=== PATIENT | male | born 1990 | race Caucasian/White ===

== ENCOUNTER 2016-10-01 11:44 | Emergency (ER) | payer SELFPAY ==
[2016-10-01 11:51] VITALS: BP 117/71; PULSE 67; TEMP 97.6; BMI 25.6
--- NOTE | 2016-10-01 13:09 | PDOC ---
History of Present Illness - General Chief Complaint: Pain Stated Complaint: RIGHT KNEE PAIN Time Seen by Provider: 10/01/16 12:17 History Source: Patient Exam Limitations: No Limitations - History of Present Illness Initial Comments: 10/01/16 13:05 25 yr male with 8 years of pain to the right knee. Pt states he injured it in highschool and has had intermittent pain since then. Pt denies any recent trauma or injury. Pt has no medical history or surgical history no allergies. Severity: Yes: mild Lower Ext. Injury Location - Specific Injury Location Knees: right pain Past History - Past Medical History Allergies/Adverse Reactions: Allergies Allergy/AdvReac Type Severity Reaction Status Date / Time No Known Allergies Allergy Verified 10/01/16 11:48 Home Medications: Ambulatory Orders No Home Medications 0 dose .ROUTE UTDICT 12/18/12 Other medical history: brain sx 'METAL PLATE" - Psycho/Social/Smoking Cessation Hx Anxiety: No Suicidal Ideation: No Smoking Status: Yes Smoking History: Current every day smoker Have you smoked in the past 12 months: Yes Number of Cigarettes Smoked Daily: 10 Information on smoking cessation initiated: No 'Breaking Loose' booklet given: 08/09/15 Hx Alcohol Use: No Drug/Substance Use Hx: No Substance Use Type: None Review of Systems - Review of Systems Able to Perform ROS?: Yes Is the patient limited Slovenian proficient: No Constitutional: No: Symptoms Reported HEENTM: No: Symptoms Reported Respiratory: No: Symptoms reported Cardiac (ROS): No: Symptoms Reported ABD/GI: No: Symptoms Reported : No: Symptoms Reported Musculoskeletal: Yes: See HPI *Physical Exam - Vital Signs Last Vital Signs Temp Pulse Resp BP Pulse Ox 97.6 F 67 18 117/71 100 10/01/16 11:48 10/01/16 11:48 10/01/16 11:48 10/01/16 11:48 10/01/16 11:48 - Physical Exam General Appearance: Yes: Nourished, Appropriately Dressed HEENT: positive: EOMI, ADRIAN Neck: positive: Supple Respiratory/Chest: positive: Lungs Clear, Normal Breath Sounds Cardiovascular: positive: Regular Rhythm, Regular Rate Musculoskeletal: positive: Normal Inspection. negative: Other Extremity: positive: Normal Capillary Refill, Normal Inspection, Normal Range of Motion. negative: Tender, Swelling, Erythema, Inflammation Integumentary: positive: Normal Color, Dry, Warm Neurologic: positive: Fully Oriented, Alert, Normal Mood/Affect, Normal Response , Motor Strength 5/5 ED Treatment Course - RADIOLOGY Radiology Studies Ordered: Category Date Time Status KNEE 3 POS-RIGHT [RAD] Stat Radiology 10/01/16 12:31 Completed Medical Decision Making - Medical Decision Making 10/01/16 13:06 cc: knee pain 8 years will xray to r/o fracture refer to ortho for follow up nsaids for pain *DC/Admit/Observation/Transfer Diagnosis at time of Disposition: Knee pain Qualifiers: Chronicity: acute Laterality: right Qualified Code(s): M25.561 - Pain in right knee - Discharge Dispostion Disposition: HOME Condition at time of disposition: Good - Referrals Referrals: Mike Granados MD [Staff Physician] - - Patient Instructions Additional Instructions: follow with for follow up , he has office hours in the hospital just call to make appointment take motrin , (advil, naprosyn, aleve) as directed for pain over the counter
== END 2016-10-01 13:27 | disposition home or self-care (01) ==
LOC: JERFT 11:44
DX: M25.561 Pain in right knee (principal); F17.210 Nicotine dependence, cigarettes, uncomplicated
CPT/HCPCS: 73562-TC-RT; 99281-25

== ENCOUNTER 2017-09-20 16:03 | Emergency (ER) | payer SELFPAY ==
--- NOTE | 2017-09-20 16:13 | PDOC ---
Rapid Medical Evaluation Time Seen by Provider: 09/20/17 16:11 Medical Evaluation: Allergies Allergy/AdvReac Type Severity Reaction Status Date / Time No Known Allergies Allergy Verified 10/01/16 11:48 09/20/17 16:11 I have performed a brief in-person evaluation of this patient. The patient present with a chief complaint of: finger pain x 3 days. States pull hang nail over the weekend since then with pain, redness and swelling Blood in urine and left lower abdominal pain on Wednesday Pertinent physical exam findings: NAD right 2nd digit with redness and swelling around nail bed non tender abdomen no cva tenderness I have ordered the following: urinalysis The patient will proceed to the ED for further evaluation.
[2017-09-20 16:14] VITALS: BP 117/71; PULSE 93; TEMP 98.8; BMI 18.8
--- NOTE | 2017-09-20 17:18 | PDOC ---
History of Present Illness - General Chief Complaint: Injury Stated Complaint: LT FINGER INJURY Time Seen by Provider: 09/20/17 16:11 History Source: Patient Exam Limitations: No Limitations (L index finger) - History of Present Illness Associated Symptoms: denies: fever/chills Past History - Travel Traveled outside of the country in the last 30 days: No - Past Medical History Allergies/Adverse Reactions: Allergies Allergy/AdvReac Type Severity Reaction Status Date / Time No Known Allergies Allergy Verified 09/20/17 16:14 Home Medications: Ambulatory Orders No Home Medications 0 dose .ROUTE UTDICT 12/18/12 Cephalexin [Keflex] 500 mg PO BID #14 capsule 09/20/17 Ibuprofen 600 mg PO ACDIN #21 tablet 09/20/17 COPD: No - Suicide/Smoking/Psychosocial Hx Smoking Status: Yes Smoking History: Current every day smoker Have you smoked in the past 12 months: Yes Number of Cigarettes Smoked Daily: 10 Information on smoking cessation initiated: No 'Breaking Loose' booklet given: 09/20/17 Hx Alcohol Use: No Drug/Substance Use Hx: No Substance Use Type: None Review of Systems - Review of Systems Able to Perform ROS?: No Is the patient limited Malagasy proficient: No Constitutional: No: Chills, Fever ABD/GI: Yes: Other (hematuria--resolved). No: Abdominal Distended, Abd. Pain w / defecation, Blood Streaked Bowels, Difficulty Swallowing, Nausea, Poor Appetite, Poor Fluid Intake, Vomiting, Indigestion, Abdominal cramping : Yes: Hematuria (resolved). No: Burning, Dysuria, Discharge, Frequency, Flank Pain, Incontinence, Pain, Urgency, Testicular Mass, Testicular Swelling, Testicular Pain Musculoskeletal: Yes: Other (L index finger pain) *Physical Exam - Vital Signs Last Vital Signs Temp Pulse Resp BP Pulse Ox 98.8 F 93 H 18 117/71 98 09/20/17 16:12 09/20/17 16:12 09/20/17 16:12 09/20/17 16:12 09/20/17 16:12 - Physical Exam General Appearance: Yes: Nourished Respiratory/Chest: positive: Lungs Clear, Normal Breath Sounds Cardiovascular: positive: Regular Rhythm, Regular Rate, S1, S2 Gastrointestinal/Abdominal: positive: Normal Bowel Sounds, Flat, Soft Extremity: positive: Normal Capillary Refill, Other (L index finger: swelling around nail curitle, no pocket of abscess yet, FROM) 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 Pt also c/o intermittent LLQ pain for several days, + hematuria 2 days ago--resolved. He denies urinary urgency, frequency, dsyruia, penile/testicular pain or STI concerns exam benign abd exam + early paronchycia of R index finger--warm compresses advised abx benign abd exam UA no blood pt advised to f/u PCP if sx returns 09/20/17 19:40 09/20/17 19:41 *DC/Admit/Observation/Transfer Diagnosis at time of Disposition: Paronychia Hematuria Qualifiers: Hematuria type: asymptomatic microscopic Qualified Code(s): R31.21 - Asymptomatic microscopic hematuria - Discharge Dispostion Disposition: HOME Condition at time of disposition: Stable Decision to Admit order: No - Prescriptions Prescriptions: Cephalexin [Keflex] 500 mg PO BID #14 capsule Ibuprofen 600 mg PO ACDIN #21 tablet - Referrals - Patient Instructions Printed Discharge Instructions: DI for Paronychia Additional Instructions: continue warm soak to finger your urine was negative for blood, a urine culture was sent out please follow up with your primary care doctor for further evaluation - Post Discharge Activity
[2017-09-20 17:41] LABS: URINE APPEARANCE CLEAR; URINE BILIRUBIN NEGATIVE (<2.0 mg/dL); URINE BLOOD NEGATIVE (NEGATIVE); URINE COLOR YELLOW; URINE GLUCOSE (UA) NEGATIVE (NEGATIVE); URINE KETONE NEGATIVE (NEGATIVE); URINE LEUK ESTERASE TRACE (NEGATIVE); URINE NITRITE NEGATIVE (NEGATIVE); URINE PROTEIN NEGATIVE (NEGATIVE)
[2017-09-20 17:42] LABS: EPI CELLS RARE /HPF (FEW)
[2017-09-20 17:43] LABS: URINE HYALINE CAST 5 /lpf; URINE MUCUS FEW
== END 2017-09-20 17:56 | disposition home or self-care (01) ==
LOC: JERFT 16:03
DX: R31.21 Asymptomatic microscopic hematuria (principal); L03.012 Cellulitis of left finger
CPT/HCPCS: 81003; 81015; 87086; 99281-25

== ENCOUNTER 2017-09-25 12:05 | Emergency (ER) | payer SELFPAY ==
[2017-09-25 12:16] VITALS: BP 127/70; PULSE 78; TEMP 97.7; BMI 18.8
--- NOTE | 2017-09-25 12:50 | PDOC ---
History of Present Illness - General Chief Complaint: Revisit,Wound Recheck Stated Complaint: INFECTION Time Seen by Provider: 09/25/17 12:28 History Source: Patient Exam Limitations: No Limitations - History of Present Illness Initial Comments: 09/25/17 12:46 26 yr male with paronychia to his right index finger for one week. Occurred: reports: last week Severity: reports: moderate Past History - Past Medical History Allergies/Adverse Reactions: Allergies Allergy/AdvReac Type Severity Reaction Status Date / Time No Known Allergies Allergy Verified 09/25/17 12:16 Home Medications: Ambulatory Orders NK [No Known Home Medication] 09/25/17 COPD: No - Suicide/Smoking/Psychosocial Hx Smoking Status: Yes Smoking History: Current every day smoker Have you smoked in the past 12 months: Yes Number of Cigarettes Smoked Daily: 10 Information on smoking cessation initiated: No 'Breaking Loose' booklet given: 09/20/17 Hx Alcohol Use: No Drug/Substance Use Hx: No Substance Use Type: None *Physical Exam - Vital Signs Last Vital Signs Temp Pulse Resp BP Pulse Ox 97.7 F 78 18 127/70 100 09/25/17 12:12 09/25/17 12:12 09/25/17 12:12 09/25/17 12:12 09/25/17 12:12 - Physical Exam General Appearance: Yes: Nourished, Appropriately Dressed HEENT: positive: EOMI, ADRIAN Neck: positive: Supple. negative: Tender Respiratory/Chest: positive: Lungs Clear, Normal Breath Sounds Cardiovascular: positive: Regular Rhythm, Regular Rate Musculoskeletal: positive: Normal Inspection Extremity: positive: Normal Capillary Refill, Normal Inspection, Tender (right index finger with paronychia , swelling nv intact FROM of the digit) Integumentary: positive: Normal Color, Dry, Warm Neurologic: positive: Fully Oriented, Alert, Normal Mood/Affect, Normal Response , Motor Strength 5/5 Procedures - Incision and Drainage Anesthesia: 1% Lidocaine Blade Size: 10 (paronychia drained with 10 blade copiuos amounts of pus returned ) Medical Decision Making - Medical Decision Making 09/25/17 12:47 cc: paronychia right index finger will drain now soak in warm soapy water 09/25/17 13:54 bacitracin placed and bandaid strict dc inst discussed pt understands the plan of care. *DC/Admit/Observation/Transfer Diagnosis at time of Disposition: Paronychia - Discharge Dispostion Disposition: HOME Condition at time of disposition: Improved - Referrals Referrals: Sukhi Alanis MD [Staff Physician] - - Patient Instructions Printed Discharge Instructions: DI for Paronychia Additional Instructions: soak in warm soapy (liquid dish soap) water 4-5 times a day for 10 minutes keep dry and apply bacitracin and bandaid daily until healed if this re-occurs please follow with the hand surgeon for follow up - Post Discharge Activity
== END 2017-09-25 12:55 | disposition home or self-care (01) ==
LOC: JERFT 12:05
PROC: 0J9J0ZZ Drainage of Right Hand Subcutaneous Tissue and Fascia, Open Approach (ICD-10-PCS; principal; 2017-09-25)
DX: L03.011 Cellulitis of right finger (principal)
CPT/HCPCS: 99281-25

== ENCOUNTER 2020-10-13 11:30 | Emergency (ER) | payer OTHER ==
[2020-10-13 11:55] VITALS: TEMP 98.8; BMI 21.4
[2020-10-13] MEDS ORDERED: SODIUM CHLORIDE 0.9% 500 ML INFUS.BAG IV ONE (11:59)
[2020-10-13] MEDS ORDERED: levETIRAcetam 500 MG/5 ML INJECTION VIAL IVPB ONE ×2 (12:00→12:08)
[2020-10-13 12:40] LABS: BASO % 0.4 % (0-2.0); EOS % 0.2 % (0-4.5); HEMATOCRIT 41.7 % (35.4-49); HEMOGLOBIN 13.9 GM/dL (11.7-16.9); LYMPH % 10.1 % (8-40); MCH 30.4 pg (25.7-33.7); MCHC 33.3 g/dl (32.0-35.9); MEAN CELL VOLUME 91.4 fl (80-96); MEAN PLT VOLUME 7.6 fl (7.5-11.1); MONO % 5.5 % (3.8-10.2); NEUT % 83.8 % (42.8-82.8); PLATELET COUNT 394 10^3/uL (134-434); RBC 4.57 M/mm3 (4.00-5.60); RDW 13.4 % (11.9-15.9); WHITE BLOOD COUNT 10.9 K/mm3 (4.0-10.0)
[2020-10-13 12:50] LABS: INR 1.15 (0.83-1.09); PROTHROMBIN TIME (PATIENT) 13.8 SEC (9.7-13.0)
[2020-10-13 12:52] LABS: ACTIVATED PTT 26.7 SECONDS (25.2-36.5)
[2020-10-13 13:00] LABS: ALBUMIN 4.3 g/dl (3.4-5.0); BLOOD UREA NITROGEN 10.4 mg/dL (7-18); CALCIUM 9.4 mg/dL (8.5-10.1); MAGNESIUM 2.5 mg/dL (1.8-2.4)
[2020-10-13 13:04] LABS: CREATININE 0.9 mg/dL (0.55-1.3)
[2020-10-13 13:05] LABS: BILIRUBIN,TOTAL 0.5 mg/dL (0.2-1); TOT PROT 7.5 g/dl (6.4-8.2)
[2020-10-13 15:07] VITALS: BP 118/66; PULSE 76
== END 2020-10-13 14:36 | disposition left against medical advice (07) ==
LOC: JER 11:30
PROC: 3E033NZ Introduction of Analgesics, Hypnotics, Sedatives into Peripheral Vein, Percutaneous Approach (ICD-10-PCS; principal; 2020-10-13)
DX: R56.9 Unspecified convulsions (principal); S06.5X0A Traumatic subdural hemorrhage without loss of consciousness, initial encounter
CPT/HCPCS: 36415; 70450-TC; 80053; 83735; 85025; 85610; 85730; 86850; 86900; 86901; 93005; 93010; 99285-25